=== PATIENT | female | born 1970 | race Caucasian/White ===

== ENCOUNTER 2017-12-30 13:29 | Inpatient (IN) | payer OTHER ==
[2017-12-30 14:24] VITALS: BMI 25.7
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
[2017-12-30] MEDS ORDERED: chlordiazePOXIDE HCL 25 MG CAPSULE PO ONE (15:14)
[2017-12-30] MEDS ORDERED: IBUPROFEN 400 MG TABLET (FP) PO PRN (15:14)
[2017-12-30] MEDS ORDERED: ACETAMINOPHEN 325 MG TABLET (FP) PO PRN (15:14)
[2017-12-30] MEDS ORDERED: P-EPHED 60MG/TRIPROLIDI 2.5MG TABLET PO PRN (15:14)
[2017-12-30] MEDS ORDERED: chlordiazePOXIDE HCL 25 MG CAPSULE PO PRN (15:14)
[2017-12-30] MEDS ORDERED: MAG HYDROX/AL HYDROX/SIMETH 30 ML UNIT-DOSE CUP PO PRN (15:14)
[2017-12-30] MEDS ORDERED: MAGNESIUM CITRATE 300 ML BOTTLE PO PRN (15:14)
[2017-12-30] MEDS ORDERED: MENTHOL/PHENOL 1 EACH UD MM PRN (15:14)
[2017-12-30] MEDS ORDERED: guaiFENesin/D-METHORPHAN HB 10 ML UNIT-DOSE CUPS PO PRN (15:14)
[2017-12-30] MEDS ORDERED: MAGNESIUM HYDROX 2400MG/30ML ORAL SUSPENSION 30 ML CUP PO PRN (15:14)
[2017-12-30] MEDS ORDERED: LOPERAMIDE HCL 2 MG CAPSULE PO PRN (15:14)
[2017-12-30] MEDS ORDERED: hydrOXYzine PAMOATE 25 MG CAPSULE (FP) PO PRN (15:14)
[2017-12-30] MEDS: chlordiazePOXIDE HCL 25 MG CAPSULE PO SCH ×2 (17:42→22:30)
[2017-12-30 19:24] LABS: URINE APPEARANCE CLEAR; URINE BILIRUBIN NEGATIVE (<2.0 mg/dL); URINE COLOR STRAW; URINE GLUCOSE (UA) NEGATIVE (NEGATIVE); URINE KETONE NEGATIVE (NEGATIVE); URINE LEUK ESTERASE NEGATIVE (NEGATIVE); URINE NITRITE NEGATIVE (NEGATIVE); URINE PROTEIN NEGATIVE (NEGATIVE); URINE UROBILINOGEN NEGATIVE mg/dL (0.2-1.0)
[2017-12-30] MEDS ORDERED: MELATONIN 5 MG TABLETS PO PRN (22:00)
[2017-12-30] MEDS ORDERED: THIAMINE HCL 100 MG TABLET (FP) PO SCH (22:00)
[2017-12-31] MEDS: chlordiazePOXIDE HCL 25 MG CAPSULE PO SCH ×2 (05:46→10:28)
--- NOTE | 2017-12-31 08:49 | CONSULT ---
[facility] Psychiatric Consult - Data Date of interview: 12/31/17 Identifying data: Ms Perkins is a 47 years old female seeking detox treatment for alcohol Substance Abuse History: Reorts history of alcohol use. Refer to addiction counselor's summary for further information Medical History: Significant for anemia, history of alcoholic pancreatitis, alcohol withdrawal seizure, treatment for clostridium difficile colitis andmultiple surgeries(fallopinn tube cyst removal, broken neck, drainage ofleft hip bone infection, left arm compartment syndromein 2003) . Smokes 2 cigarettes daily
[2017-12-31] MEDS ORDERED: PRENATAL VITAMINS W/ FOLIC ACID TABLET (FP) PO SCH (10:00)
[2017-12-31 10:21] VITALS: BP 123/86; PULSE 62; TEMP 97.7
[2017-12-31 10:36] LABS: HEMATOCRIT 27.9 % (32.4-45.2); MCH 29.5 pg (25.7-33.7); MCHC 32.5 g/dl (32.0-36.0); MEAN PLT VOLUME 10.7 fl (7.5-11.1); PLATELET COUNT 169 K/MM3 (134-434); RBC 3.07 M/mm3 (3.60-5.2); RDW 15.5 % (11.6-15.6); WHITE BLOOD COUNT 3.7 K/mm3 (4.0-10.0)
[2017-12-31 10:53] LABS: ALBUMIN 3.1 g/dl (3.4-5.0); ALK PHOS 108 U/L (45-117); ANION GAP 9 MMOL/L (8-16); BILIRUBIN,TOTAL 0.5 mg/dL (0.2-1); BLOOD UREA NITROGEN 19 mg/dL (7-18); CALCIUM 8.2 mg/dL (8.5-10.1); CHLORIDE 105 mmol/L (98-107); CO2 25 mmol/L (21-32); CREATININE 0.8 mg/dL (0.55-1.3); GLUCOSE,RANDOM 84 mg/dL (74-106); POTASSIUM 3.7 mmol/L (3.5-5.1); SGOT/AST 58 U/L (15-37); SGPT/ALT 90 U/L (13-61); SODIUM 139 mmol/L (136-145); TOT PROT 6.2 g/dl (6.4-8.2)
--- NOTE | 2017-12-31 12:18 | PN ---
S Progress Note Note: Patient was unwilling to be interviewed because she wanted to signed out against medical advice
--- NOTE | 2017-12-31 12:27 | DS ---
[facility] Detox Discharge Summary Admission Date: 12/30/17 Discharge Date: 12/31/17 - History Present History: Alcohol Dependence Additional Comments: 47 years old female admitted on 12/30/17 for alcohol withdrawal sx alert oriented x 3 no acute distress denies suicidal denies homocidal no self destructive behavior insists to leave the detox unit that "I am not ready" longest sobriety x 4 years "mandated program" offer librium prn offer supportive therapies patient rejects supportive care patient wants to leave and the "right" to leave encourage discuss feelings and concerns offer alternative such as out patient detox and inpatient rehab patient agrees to consider the options - Physical Exam Results Vital Signs: Vital Signs Temperature 97.7 F 12/31/17 10:20 Pulse Rate 62 12/31/17 10:20 Respiratory Rate 18 12/31/17 10:20 Blood Pressure 123/86 12/31/17 10:20 O2 Sat by Pulse Oximetry (%) Pertinent Admission Physical Exam Findings: alcohol withdrawal sx Vital Signs Temperature 97.7 F 12/31/17 10:20 Pulse Rate 62 12/31/17 10:20 Respiratory Rate 18 12/31/17 10:20 Blood Pressure 123/86 12/31/17 10:20 O2 Sat by Pulse Oximetry (%) Laboratory Last Values WBC 3.7 K/mm3 (4.0-10.0) L 12/31/17 07:40 RBC 3.07 M/mm3 (3.60-5.2) L 12/31/17 07:40 Hgb 9.0 GM/dL (10.7-15.3) L 12/31/17 07:40 Hct 27.9 % (32.4-45.2) L 12/31/17 07:40 MCV 91.0 fl (80-96) 12/31/17 07:40 MCH 29.5 pg (25.7-33.7) 12/31/17 07:40 MCHC 32.5 g/dl (32.0-36.0) 12/31/17 07:40 RDW 15.5 % (11.6-15.6) 12/31/17 07:40 Plt Count 169 K/MM3 (134-434) 12/31/17 07:40 MPV 10.7 fl (7.5-11.1) 12/31/17 07:40 Sodium 139 mmol/L (136-145) 12/31/17 07:40 Potassium 3.7 mmol/L (3.5-5.1) 12/31/17 07:40 Chloride 105 mmol/L (98-107) 12/31/17 07:40 Carbon Dioxide 25 mmol/L (21-32) 12/31/17 07:40 Anion Gap 9 MMOL/L (8-16) 12/31/17 07:40 BUN 19 mg/dL (7-18) H 12/31/17 07:40 Creatinine 0.8 mg/dL (0.55-1.3) 12/31/17 07:40 Creat Clearance w eGFR > 60 (>60) 12/31/17 07:40 Random Glucose 84 mg/dL (74-106) 12/31/17 07:40 Calcium 8.2 mg/dL (8.5-10.1) L 12/31/17 07:40 Total Bilirubin 0.5 mg/dL (0.2-1) 12/31/17 07:40 AST 58 U/L (15-37) H 12/31/17 07:40 ALT 90 U/L (13-61) H 12/31/17 07:40 Alkaline Phosphatase 108 U/L (45-117) 12/31/17 07:40 Total Protein 6.2 g/dl (6.4-8.2) L 12/31/17 07:40 Albumin 3.1 g/dl (3.4-5.0) L 12/31/17 07:40 Urine Color Straw 12/30/17 17:30 Urine Appearance Clear 12/30/17 17:30 Urine pH 6.0 (5.0-8.0) 12/30/17 17:30 Ur Specific [place] 1.003 (1.010-1.035) L 12/30/17 17:30 Urine Protein Negative (NEGATIVE) 12/30/17 17:30 Urine Glucose (UA) Negative (NEGATIVE) 12/30/17 17:30 Urine Ketones Negative (NEGATIVE) 12/30/17 17:30 Urine Blood Negative (NEGATIVE) 12/30/17 17:30 Urine Nitrite Negative (NEGATIVE) 12/30/17 17:30 Urine Bilirubin Negative (<2.0 mg/dL) 11/17/18 17:30 Urine Urobilinogen Negative mg/dL (0.2-1.0) 12/30/17 17:30 Ur Leukocyte Esterase Negative (NEGATIVE) 12/30/17 17:30 RPR Titer Nonreactive (NONREACTIVE) 12/31/17 07:40 lab noted - Treatment Hospital Course: Detox Protocol Followed, Responded well Patient has Accepted a Rehab Referral to: [facility] community self help groups and meetings - Medication Discharge Medications: Ambulatory Orders Fluoxetine HCl [Prozac -] 10 mg PO DAILY 12/30/17 Gabapentin [Neurontin -] 300 mg PO Q8H 12/30/17 hydrOXYzine PAMOATE [Vistaril -] 25 mg PO TID 12/30/17 - Diagnosis (1) Alcohol dependence with uncomplicated withdrawal Current Visit: Yes Status: Acute (2) Nicotine dependence Current Visit: Yes Status: Acute Qualifiers: Nicotine product type: cigarettes Substance use status: in withdrawal Qualified Code(s): F17.213 - Nicotine dependence, cigarettes, with withdrawal - AMA Did Patient Leave Against Medical Advice: Yes
--- NOTE | 2017-12-31 12:46 | EKG ---
Test Reason : Blood Pressure : / mmHG Vent. Rate : 083 BPM Atrial Rate : 083 BPM P-R Int : 154 ms QRS Dur : 084 ms QT Int : 386 ms P-R-T Axes : 044 026 034 degrees QTc Int : 453 ms NORMAL SINUS RHYTHM NORMAL ECG NO PREVIOUS ECGS AVAILABLE Confirmed by Alexandru Gates ([id number]) on 12/31/2017 12:45:39 PM Referred By: Confirmed By:Alexandru Gates
[2017-12-31] MEDS ORDERED: chlordiazePOXIDE HCL 25 MG CAPSULE PO SCH (17:00)
[2018-01-01] MEDS ORDERED: chlordiazePOXIDE 5 MG CAPSULE PO SCH (17:00)
[2018-01-02] MEDS ORDERED: chlordiazePOXIDE HCL 10 MG CAPSULE PO SCH (17:00)
== END 2017-12-31 12:44 | disposition left against medical advice (07) | DRG 770 ==
LOC: YASAS 13:29 → Y6N 15:36
PROC: HZ2ZZZZ Detoxification Services for Substance Abuse Treatment (ICD-10-PCS; principal; 2017-12-30)
DX: F10.230 Alcohol dependence with withdrawal, uncomplicated (principal); F17.213 Nicotine dependence, cigarettes, with withdrawal; Z86.69 Personal history of other diseases of the nervous system and sense organs; Z86.19 Personal history of other infectious and parasitic diseases; Z98.890 Other specified postprocedural states; Z59.0 Homelessness
CPT/HCPCS: 36415; 80053; 81003; 85027; 86593; 93005; 93010